=== PATIENT | female | born 1990 | race Caucasian/White ===

== ENCOUNTER 2017-06-23 15:49 | Emergency (ER) | payer OTHER ==
--- NOTE | 2017-06-23 16:47 | PDOC ---
Rapid Medical Evaluation Time Seen by Provider: 06/23/17 16:45 Medical Evaluation: Allergies Allergy/AdvReac Type Severity Reaction Status Date / Time No Known Allergies Allergy Verified 08/27/14 13:33 06/23/17 16:45 I have performed a brief in-person evaluation of this patient. The patient presents with a chief complaint of: lower abd cramping this am, no vag bleed or dysuria Pertinent physical exam findings:tenderness to mid suprapubic I have ordered the following:beta, T&S, ua, US The patient will proceed to the ED for further evaluation.
[2017-06-23 16:49] VITALS: BMI 24.7
--- NOTE | 2017-06-23 17:14 | PDOC ---
Attending Attestation - Resident Resident Name: Adrian Peter - ED Attending Attestation I have performed the following: I have examined & evaluated the patient, The case was reviewed & discussed with the resident, I agree w/resident's findings & plan, Exceptions are as noted
[2017-06-23 17:27] LABS: URINE APPEARANCE CLEAR; URINE BILIRUBIN NEGATIVE (NEGATIVE); URINE BLOOD NEGATIVE (NEGATIVE); URINE COLOR LTYELLOW; URINE GLUCOSE (UA) NEGATIVE (NEGATIVE); URINE KETONE NEGATIVE (NEGATIVE); URINE LEUK ESTERASE NEGATIVE (NEGATIVE); URINE NITRITE NEGATIVE (NEGATIVE); URINE PROTEIN NEGATIVE (NEGATIVE); URINE UROBILINOGEN NEGATIVE mg/dL (0.2-1.0)
--- NOTE | 2017-06-23 18:24 | PDOC ---
History of Present Illness - General History Source: Patient Exam Limitations: No Limitations - History of Present Illness Initial Comments: 06/23/17 18:25 The patient is a 27 year old female, , 12 weeks , who presents to the ED with complaints of lower abdominal cramping for the past 1.5 days. The patient denies having any pain throughout her . Additionally the patient complains of mild nausea which shes been endorsing since she was .She denies any associated vaginal bleeding. She additionally denies any dysuria, hematuria, urgency or frequency. She denies any fevers or chills and reports recent travel to [place] and returned one week ago. The patient denies being seen by an SHOVEL LOADER OPERATOR yet for her . She denies history of UTI but reports history of yeast infections. <Lena Ness - Last Filed: 06/23/17 18:25> <Adrien Winter - Last Filed: 06/24/17 01:15> - General Chief Complaint: Pain Stated Complaint: ABD CRAMPING (12 WKS ) Time Seen by Provider: 06/23/17 16:45 Past History <Lena Ness - Last Filed: 06/23/17 18:25> - Past Medical History Asthma: No Cancer: No Cardiac Disorders: No COPD: No Diabetes: No HTN: No Seizures: No Thyroid Disease: No - Reproductive History Is Patient Now?: Yes (#): 2 Para: 1 Spontaneous : 0 - Suicide/Smoking/Psychosocial Hx Smoking History: Never smoked Have you smoked in the past 12 months: No Information on smoking cessation initiated: No Hx Alcohol Use: No Drug/Substance Use Hx: No Substance Use Type: None Hx Substance Use Treatment: No <Adrien Winter - Last Filed: 06/24/17 01:15> - Past Medical History Allergies/Adverse Reactions: Allergies Allergy/AdvReac Type Severity Reaction Status Date / Time No Known Allergies Allergy Verified 06/23/17 16:49 Home Medications: Ambulatory Orders NK [No Known Home Medication] 07/03/14 Review of Systems - Review of Systems Able to Perform ROS?: Yes <Lena Ness - Last Filed: 06/23/17 18:25> *Physical Exam - Vital Signs Last Vital Signs Temp Pulse Resp BP Pulse Ox 97.8 F 88 17 124/64 100 06/23/17 16:46 06/23/17 16:46 06/23/17 16:46 06/23/17 16:46 06/23/17 16:46 <Lena Ness - Last Filed: 06/23/17 18:25> - Vital Signs Last Vital Signs Temp Pulse Resp BP Pulse Ox 97.8 F 88 17 124/64 100 06/23/17 16:46 06/23/17 16:46 06/23/17 16:46 06/23/17 16:46 06/23/17 16:46 <Adrien Winter - Last Filed: 06/24/17 01:15> ED Treatment Course - ADDITIONAL ORDERS Additional order review: Laboratory Results 06/23/17 06/23/17 17:00 17:00 Urine Color Ltyellow Urine Appearance Clear Urine pH 8.0 D Ur Specific [place] 1.024 Urine Protein Negative Urine Glucose (UA) Negative Urine Ketones Negative Urine Blood Negative Urine Nitrite Negative Urine Bilirubin Negative Urine Urobilinogen Negative Ur Leukocyte Esterase Negative Urine HCG, Qual Positive <Lena Ness - Last Filed: 06/23/17 18:25> - ADDITIONAL ORDERS Additional order review: Laboratory Results 06/23/17 06/23/17 17:00 17:00 Urine Color Ltyellow Urine Appearance Clear Urine pH 8.0 D Ur Specific [place] 1.024 Urine Protein Negative Urine Glucose (UA) Negative Urine Ketones Negative Urine Blood Negative Urine Nitrite Negative Urine Bilirubin Negative Urine Urobilinogen Negative Ur Leukocyte Esterase Negative Urine HCG, Qual Positive <Adrien Winter - Last Filed: 06/24/17 01:15> Medical Decision Making - Medical Decision Making 06/24/17 01:15 Well-appearing no apparent distress urinalysis clean history and examination at this time most consistent with vulvo-vaginal candidiasis Patient will follow-up with her SHOVEL LOADER OPERATOR on Monday. We'll treat with over-the- counter Monistat Findings, the need for follow-up, strict return instructions discussed with patient. <Adrien Winter - Last Filed: 06/24/17 01:15> *DC/Admit/Observation/Transfer <Lena Ness - Last Filed: 06/23/17 18:25> - Discharge Dispostion Admit: No <Adrien Winter - Last Filed: 06/24/17 01:15> Diagnosis at time of Disposition: Dysuria - Referrals Referrals: Socorro Julien MD [Staff Physician] - - Patient Instructions Printed Discharge Instructions: DI for Vaginal Yeast Infection Additional Instructions: Follow-up with Dr. Julien SHOVEL LOADER OPERATOR this week. Return to the emergency department for any severe bleeding severe abdominal pain fever or for any concerns. Take [id number] Monistat cream for yeast infection If urine culture grows any bacteria you'll receive a phone call and an antibiotic will be called in for you - Post Discharge Activity Forms/Work/School Notes: Back to Work
[2017-06-23 18:40] VITALS: BP 123/77; PULSE 72; TEMP 98.2
== END 2017-06-23 18:40 | disposition home or self-care (01) ==
LOC: JER 15:49
DX: O26.891 Other specified pregnancy related conditions, first trimester (principal); O98.811 Other maternal infectious and parasitic diseases complicating pregnancy, first trimester; B37.3 Candidiasis of vulva and vagina; Z3A.12 12 weeks gestation of pregnancy
CPT/HCPCS: 36415; 76801-TC; 81003; 84702; 84703; 86850; 86900; 86901; 87086; 99282-25

== ENCOUNTER 2017-12-21 14:30 | Inpatient (IN) | payer OTHER ==
[2017-12-21] MEDS: DEXTROSE 5%-LACTATED RINGERS 1,000 ML IV SCH (14:30)
[2017-12-21 15:34] VITALS: BMI 29.5
[2017-12-21] MEDS ORDERED: OXYTOCIN 20 UNITS in 0.9% NS 20 UNIT/1,000 ML INFUS.BAG IV ONE (16:15)
[2017-12-21] MEDS: OXYTOCIN 20 UNITS in 0.9% NS 20 UNIT/1,000 ML INFUS.BAG IV SCH (16:25)
[2017-12-21] MEDS ORDERED: METHYLERGONOVINE MALEATE 0.2 MG/1 ML AMP IM PRN (16:32)
[2017-12-21] MEDS ORDERED: WITCH HAZEL 50% (TUCKS) 40 PAD/JAR PAD TP PRN (16:32)
[2017-12-21] MEDS ORDERED: BISACODYL 10 MG SUPP.RECT RC PRN (16:32)
[2017-12-21 16:41] LABS: BASO % 0.4 % (0-2.0); EOS % 0.3 % (0-4.5); HEMATOCRIT 38.1 % (32.4-45.2); HEMOGLOBIN 12.9 GM/dL (10.7-15.3); LYMPH % 20.9 % (8-40); MCH 29.4 pg (25.7-33.7); MCHC 33.8 g/dl (32.0-36.0); MEAN CELL VOLUME 87.1 fl (80-96); MEAN PLT VOLUME 9.6 fl (7.5-11.1); MONO % 5.4 % (3.8-10.2); PLATELET COUNT 234 K/MM3 (134-434); RBC 4.38 M/mm3 (3.60-5.2); RDW 14.2 % (11.6-15.6); WHITE BLOOD COUNT 11.1 K/mm3 (4.0-10.0)
[2017-12-21] MEDS: ELECTROLYTE-148 SOLN 1,000 ML IV SCH (16:45)
[2017-12-21] MEDS ORDERED: IBUPROFEN 600 MG TABLET (FP) PO ONE (16:52)
[2017-12-21] MEDS ORDERED: ACETAMINOPHEN 325 MG TABLET (FP) ONE (16:52)
[2017-12-21] MEDS: ACETAMINOPHEN 325 MG TABLET (FP) PO PRN (16:55)
[2017-12-21] MEDS: IBUPROFEN 600 MG TABLET (FP) PO PRN (16:55)
[2017-12-21 17:01] LABS: INR 0.84 (0.82-1.09); PROTHROMBIN TIME (PATIENT) 9.5 SEC (9.7-13.0)
[2017-12-21 17:03] LABS: ACTIVATED PTT 24.1 SECONDS (25.2-36.5)
[2017-12-21 17:04] LABS: ANION GAP 12 (8-16); BLOOD UREA NITROGEN 12 mg/dL (7-18); CALCIUM 8.9 mg/dL (8.5-10.1); CHLORIDE 106 mmol/L (98-107); CO2 20 mmol/L (21-32); CREATININE 0.6 mg/dL (0.55-1.02); GLUCOSE,RANDOM 87 mg/dL (74-106); POTASSIUM 3.6 mmol/L (3.5-5.1); SODIUM 138 mmol/L (136-145)
[2017-12-21] MEDS: FERROUS SO4 325 MG TABLET (FP) PO SCH (18:21)
[2017-12-21 20:04] LABS: PLATELET ESTIMATE ADEQUATE
--- NOTE | 2017-12-21 20:31 | HP ---
Past Medical History - Primary Care Physician PCP:: Horace Fitzgerald - Admission Chief Complaint: 38 weeks, labor History of Present Illness: 27 yo f 38 weeks in labor , no rom, cx 8 cm 100 vx -1 mi, fhr cat 1, regular contraction History Source: Patient Limitations to Obtaining History: No Limitations - Past Medical History ...: 2 ...Para: 1 ...Term: 1 ...: 0 ...Spon : 0 ...Induced : 0 ...Multiple Gestation: 0 ...LMP: 03/24/17 ... Weeks Gestation by Dates: 38.6 ...EDC by Dates: 12/29/17 ...EDC by Sono: 01/01/18 - Past Surgical History Hx Myomectomy: No Hx Transabdominal Cerclage: No - Smoking History Smoking history: Never smoked Have you smoked in the past 12 months: No - Alcohol/Substance Use Hx Alcohol Use: No - Social History Usual Living Arrangement: Yes: With Spouse History of Recent Travel: No Home Medications - Allergies Allergies/Adverse Reactions: Allergies Allergy/AdvReac Type Severity Reaction Status Date / Time No Known Allergies Allergy Verified 12/21/17 17:37 - Home Medications Home Medications: Ambulatory Orders Iron 1 tab PO DAILY 12/21/17 Vit 108/Iron/Folic AC [ One Tablet] 1 tab PO DAILY 12/21/17 Review of Systems - Review of Systems Constitutional: reports: No Symptoms Eyes: reports: No Symptoms HENT: reports: No Symptoms Neck: reports: No Symptoms Cardiovascular: reports: No Symptoms Respiratory: reports: No Symptoms Gastrointestinal: reports: No Symptoms Genitourinary: reports: No Symptoms Breasts: reports: No Symptoms Reported Musculoskeletal: reports: No Symptoms Integumentary: reports: No Symptoms Neurological: reports: No Symptoms Endocrine: reports: No Symptoms Hematology/Lymphatic: reports: No Symptoms Psychiatric: reports: No Symptoms Physical Exam - Maternity Vital Signs: Vital Signs Temperature 98.2 F 12/21/17 18:10 Pulse Rate 68 12/21/17 19:30 Respiratory Rate 20 12/21/17 19:30 Blood Pressure 111/50 12/21/17 19:30 O2 Sat by Pulse Oximetry (%) 100 12/21/17 17:30 - Abdominal Exam/OB Number of Fetuses: Single Presentation: Vertex Contractions: Yes Regularity: Regular Intensity: Mod/Strong Monitor Mode: External Heart Rate Location: [facility] Category: I Accelerations: Uniform Decelerations: None - Vaginal Exam/OB Vaginal Bleediing: Bloody Show Speculum Exam: No Dilatation (cm): 8 cm Effacement (%): 100 Amniotic Membrane Status: Bulging Presentation: Vertex/Position Station: -1 - Physical Exam Musculoskeletal: Yes: WNL Extremities: Yes: WNL Edema: Yes Edema: LLE: Trace, RLE: Trace Deep Tendon Reflex Grade: Normal +2 ...Motor Strength: WNL Psychiatric: Yes: WNL - Labs Lab Results: CBC, BMP 12/21/17 16:00 12/21/17 16:00 Hemorrhage Risk Assessment - Risk Factors Medium Risk Factors: Yes: None High Risk Factors: Yes: None Risk Score: 1 Risk Level: Medium Risk Problem List - Problems (1) with 38 completed weeks gestation Code(s): Z3A.38 - 38 WEEKS GESTATION OF (2) Labor established Code(s): EOM5851 - Assessment/Plan admit for vaginal delivery, FHM
--- NOTE | 2017-12-22 06:53 | PN ---
Progress Note (short form) - Note Progress Note: ppd 1 doing well, no c/o voids ok CBC, BMP 12/21/17 16:00 12/21/17 16:00 Last Vital Signs Temp Pulse Resp BP Pulse Ox 98.0 F 72 20 114/67 100 12/22/17 02:50 12/22/17 02:50 12/22/17 02:50 12/22/17 02:50 12/21/17 17:30 abdomen soft, uterus firm, non tender lochia mild no calf tenderness plan ambulate , cbc Problem List - Problems (1) with 38 completed weeks gestation Code(s): Z3A.38 - 38 WEEKS GESTATION OF (2) Labor established Code(s): QQX0167 -
[2017-12-22 07:59] LABS: BASO % 0.5 % (0-2.0); EOS % 1.1 % (0-4.5); HEMATOCRIT 30.7 % (32.4-45.2); HEMOGLOBIN 10.4 GM/dL (10.7-15.3); LYMPH % 19.4 % (8-40); MCH 29.7 pg (25.7-33.7); MCHC 33.8 g/dl (32.0-36.0); MEAN PLT VOLUME 9.7 fl (7.5-11.1); MONO % 6.3 % (3.8-10.2); NEUT % 72.7 % (42.8-82.8); PLATELET COUNT 189 K/MM3 (134-434); RBC 3.49 M/mm3 (3.60-5.2); RDW 14.3 % (11.6-15.6); WHITE BLOOD COUNT 13.6 K/mm3 (4.0-10.0)
[2017-12-22] MEDS: BENZOCAINE 28 GM HEMORRHOIDAL OINTMENT TP PRN (09:03)
[2017-12-22] MEDS: FERROUS SO4 325 MG TABLET (FP) PO SCH ×2 (09:04→17:52)
[2017-12-22] MEDS: PRENATAL VITAMINS W/ FOLIC ACID TABLET (FP) PO SCH (09:04)
[2017-12-22] MEDS: BENZOCAINE 20% 57 GM BOTTLE TP PRN (09:04)
[2017-12-22] MEDS: ACETAMINOPHEN 325 MG TABLET (FP) PO PRN ×2 (09:04→21:15)
[2017-12-22] MEDS: IBUPROFEN 600 MG TABLET (FP) PO PRN ×2 (09:05→21:15)
[2017-12-22 11:08] LABS: ANISOCYTOSIS 1+; MACROCYTOSIS 0; PLATELET ESTIMATE NORMAL
[2017-12-22] MEDS: ELECTROLYTE-148 SOLN 1,000 ML IV SCH (20:07)
[2017-12-22] MEDS: OXYTOCIN 20 UNITS in 0.9% NS 20 UNIT/1,000 ML INFUS.BAG IV SCH (20:07)
[2017-12-22] MEDS: DEXTROSE 5%-LACTATED RINGERS 1,000 ML IV SCH (20:07)
[2017-12-22] MEDS ORDERED: SENNOSIDES/DOCUSATE COMBO (SENNA PLUS) TABLET (UD) PO PRN (22:00)
[2017-12-23] VITALS: BP 117/62; PULSE 77
[2017-12-23] MEDS: FERROUS SO4 325 MG TABLET (FP) PO SCH (07:57)
[2017-12-23 08:14] VITALS: TEMP 97.9
[2017-12-23] MEDS: PRENATAL VITAMINS W/ FOLIC ACID TABLET (FP) PO SCH (10:04)
[2017-12-23] MEDS: BENZOCAINE 20% 57 GM BOTTLE TP PRN (10:05)
[2017-12-23] MEDS: BENZOCAINE 28 GM HEMORRHOIDAL OINTMENT TP PRN (10:05)
--- NOTE | 2017-12-23 11:29 | PN ---
Post Progress Note - Subjective Subjective: Pt PPD#2. Feels well, denies complaints. Voiding and ambulating. Trying to breast feed Post Day: 2 Type of Delivery: Vital Signs: Vital Signs Temperature 97.9 F 12/23/17 07:30 Pulse Rate 77 12/23/17 07:30 Respiratory Rate 18 12/23/17 07:30 Blood Pressure 117/62 12/23/17 07:30 O2 Sat by Pulse Oximetry (%) 100 12/21/17 17:30 Breast Exam: Yes: Soft Uterus: Yes: Fundus Firm Abdomen/GI: Yes: Abdomen soft Lochia, amount: Small Extremities: Yes: Calves non-tender Activity: Ambulating - Labs Labs: CBC WBC 13.6 K/mm3 (4.0-10.0) H 12/22/17 06:50 RBC 3.49 M/mm3 (3.60-5.2) L 12/22/17 06:50 Hgb 10.4 GM/dL (10.7-15.3) L 12/22/17 06:50 Hct 30.7 % (32.4-45.2) L D 12/22/17 06:50 MCV 88.0 fl (80-96) 12/22/17 06:50 MCH 29.7 pg (25.7-33.7) 12/22/17 06:50 MCHC 33.8 g/dl (32.0-36.0) 12/22/17 06:50 RDW 14.3 % (11.6-15.6) 12/22/17 06:50 Plt Count 189 K/MM3 (134-434) 12/22/17 06:50 MPV 9.7 fl (7.5-11.1) 12/22/17 06:50 Absolute Neuts (auto) 9.9 # 12/22/17 06:50 Neutrophils % 72.7 % (42.8-82.8) 12/22/17 06:50 Neutrophils % (Manual) 73.0 % (42.8-82.8) 12/22/17 06:50 Band Neutrophils % 1.0 % 12/22/17 06:50 Lymphocytes % 19.4 % (8-40) 12/22/17 06:50 Lymphocytes % (Manual) 18.0 % (8-40) 12/22/17 06:50 Monocytes % 6.3 % (3.8-10.2) 12/22/17 06:50 Monocytes % (Manual) 5 % (3.8-10.2) 12/22/17 06:50 Eosinophils % 1.1 % (0-4.5) D 12/22/17 06:50 Eosinophils % (Manual) 1.0 % (0-4.5) 12/22/17 06:50 Basophils % 0.5 % (0-2.0) 12/22/17 06:50 Basophils % (Manual) 0.0 % (0-2.0) 12/22/17 06:50 Myelocytes % (Man) 1 % (0-2) 12/22/17 06:50 Promyelocytes % (Man) 0 % (0-2) 12/22/17 06:50 Blast Cells % (Manual) 0 % (0-0) 12/22/17 06:50 Nucleated RBC % 0 % (0-0) 12/22/17 06:50 Metamyelocytes 0 % (0-2) 12/22/17 06:50 Hypochromia 0 12/22/17 06:50 Platelet Estimate Normal 12/22/17 06:50 Platelet Comment No clumping noted 12/21/17 16:00 Polychromasia 0 12/22/17 06:50 Poikilocytosis 1+ 12/22/17 06:50 Anisocytosis 1+ 12/22/17 06:50 Microcytosis 1+ 12/22/17 06:50 Macrocytosis 0 12/22/17 06:50 [place] Cells 1+ 12/22/17 06:50 Problem List - Problems (1) Vaginal delivery Assessment/Plan: Pt PPD#2 s/p doing well stable for discharge home vitamins while breast feeding pelvic rest x 6 weeks f/u pp visit 4-[address] [place] Code(s): O80 - ENCOUNTER FOR FULL-TERM UNCOMPLICATED DELIVERY
== END 2017-12-23 12:30 | disposition home or self-care (01) | DRG 560 ==
LOC: JLDR 14:30 → J3W 18:10
PROVIDERS: ADMIT Obstetrics & Gynecology; ATTEND Obstetrics & Gynecology
PROC: 10E0XZZ Delivery of Products of Conception, External Approach (ICD-10-PCS; principal; 2017-12-21)
DX: O80 Encounter for full-term uncomplicated delivery (principal); Z3A.38 38 weeks gestation of pregnancy; Z37.0 Single live birth
CPT/HCPCS: 36415; 59409; 80048; 85025; 85610; 85730; 86593; 86850; 86900; 86901

== ENCOUNTER 2022-09-14 11:33 | Inpatient (IN) | payer OTHER ==
[2022-09-14 12:48] VITALS: BMI 31.7
[2022-09-14 13:19] LABS: HEMATOCRIT 36.4 % (32.4-45.2); HEMOGLOBIN 12.6 GM/dL (10.7-15.3); INR 0.9 (0.83-1.09); MCH 29.3 pg (25.7-33.7); MCHC 34.5 g/dl (32.0-36.0); MEAN PLT VOLUME 9.9 fl (7.5-11.1); PLATELET COUNT 233 10^3/uL (134-434); PROTHROMBIN TIME (PATIENT) 10.5 SEC (9.7-13.0); RBC 4.29 M/mm3 (3.60-5.2); RDW 13.8 % (11.6-15.6)
[2022-09-14] MEDS ORDERED: OXYTOCIN 20 UNITS in 0.9% NS 20 UNIT/1,000 ML INFUS.BAG IV ONE ×2 (13:20→15:48)
[2022-09-14 13:22] LABS: ACTIVATED PTT 23.3 SECONDS (25.2-36.5)
[2022-09-14] MEDS ORDERED: DEXTROSE 5%-LACTATED RINGERS 1,000 ML IV SCH (13:30)
[2022-09-14 13:41] LABS: POTASSIUM 4.4 mmol/L (3.5-5.1)
[2022-09-14 13:43] LABS: CALCIUM 9.3 mg/dL (8.5-10.1)
[2022-09-14 13:44] LABS: BLOOD UREA NITROGEN 5.6 mg/dL (7-18)
[2022-09-14 13:47] LABS: CREATININE 0.6 mg/dL (0.55-1.3)
[2022-09-14 14:22] LABS: ANISOCYTOSIS 0; MACROCYTOSIS 0
[2022-09-14 14:33] LABS: HIV INTERPRETATION NEGATIVE (NEGATIVE)
[2022-09-14 15:11] LABS: CORD BASE EXCESS -5.8 mmol/L (0-2); CORD HCO3 20.8 mmHg (20-29); CORD PCO2 44.7 mmHg (30-78); CORD pH 7.286 (7.14-7.44)
[2022-09-14 15:14] LABS: CORD BASE EXCESS -1.1 mmol/L (0-2); CORD HCO3 24.5 mmHg (20-29); CORD PCO2 43.9 mmHg (30-78); CORD pH 7.365 (7.14-7.44)
[2022-09-14] MEDS ORDERED: OXYTOCIN 20 UNITS in 0.9% NS 20 UNIT/1,000 ML INFUS.BAG IV SCH (15:15)
[2022-09-14] MEDS ORDERED: BENZOCAINE 28 GM HEMORRHOIDAL OINTMENT TP PRN (15:15)
[2022-09-14] MEDS ORDERED: ACETAMINOPHEN 325 MG TABLET (FP) PO PRN (15:15)
[2022-09-14] MEDS ORDERED: BISACODYL 10 MG SUPP.RECT RC PRN (15:15)
[2022-09-14] MEDS ORDERED: BENZOCAINE 20% 57 GM BOTTLE TP PRN (15:15)
[2022-09-14] MEDS ORDERED: METHYLERGONOVINE MALEATE 0.2 MG/1 ML AMP IM PRN (15:15)
[2022-09-14] MEDS ORDERED: WITCH HAZEL 50% (TUCKS) 40 PAD/JAR PAD TP PRN (15:15)
[2022-09-14] MEDS ORDERED: oxyCODONE HCL 5 MG TABLET PO PRN (15:15)
[2022-09-14] MEDS ORDERED: METHYLERGONOVINE MALEATE 0.2 MG/1 ML AMP IM ONE (15:16)
[2022-09-14] MEDS: IBUPROFEN 600 MG TABLET (FP) PO PRN (16:16)
[2022-09-15] MEDS: IBUPROFEN 600 MG TABLET (FP) PO PRN ×3 (00:09→17:07)
[2022-09-15 03:30] VITALS: RESP 18
[2022-09-15 07:54] LABS: HEMATOCRIT 34.5 % (32.4-45.2); HEMOGLOBIN 11.8 GM/dL (10.7-15.3); MCHC 34.3 g/dl (32.0-36.0); MEAN CELL VOLUME 84.6 fl (80-96); MEAN PLT VOLUME 9.3 fl (7.5-11.1); PLATELET COUNT 212 10^3/uL (134-434); RBC 4.07 M/mm3 (3.60-5.2); RDW 13.9 % (11.6-15.6)
[2022-09-15 08:56] LABS: ANISOCYTOSIS 0; HELMET CELLS 0; HOWELL-JOLLY BODIES 0; MACROCYTOSIS 0; OVALOCYTE 0; ROULEAU 0; SICKELED CELLS 0; TARGET CELLS 0; TEAR DROP CELLS 0; TOXIC GRANULATION 0
[2022-09-15] MEDS ORDERED: SENNOSIDES/DOCUSATE COMBO (SENNA PLUS) TABLET (UD) PO PRN (22:00)
[2022-09-16 08:27] VITALS: BP 102/69; PULSE 79; TEMP 97.9
[2022-09-16] MEDS: IBUPROFEN 600 MG TABLET (FP) PO PRN (09:22)
== END 2022-09-16 11:10 | disposition home or self-care (01) | DRG 560 ==
LOC: JLDR 11:33 → J3W 16:00
PROVIDERS: ADMIT Obstetrics & Gynecology; ATTEND Obstetrics & Gynecology
PROC: 10E0XZZ Delivery of Products of Conception, External Approach (ICD-10-PCS; principal; 2022-09-14)
DX: O69.81X0 Labor and delivery complicated by cord around neck, without compression, not applicable or unspecified (principal); Z3A.38 38 weeks gestation of pregnancy; Z37.0 Single live birth
CPT/HCPCS: 36415; 36600; 80048; 82803; 85025; 85610; 85730; 86780; 86850; 86900; 86901; 87389; C9803-CS; U0003; U0005

== ENCOUNTER 2024-09-26 11:30 | Inpatient (IN) | payer OTHER ==
[2024-09-26 12:49] VITALS: BMI 33.2
[2024-09-26 13:00] LABS: ABSOLUTE IMMATURE GRANULOCYTES 0.09 x10^3/uL (0.0-0.031); BASOPHILS # 0.04 x10^3/uL (0.01-0.08); EOSINOPHIL % 0.7 % (0.7-5.8); EOSINOPHILS # 0.06 x10^3/uL (0.04-0.36); HEMOGLOBIN 12.1 g/dL (11.2-15.7); MCHC 32.7 g/dl (32.2-35.5); MEAN CELL VOLUME 86.7 fl (79.4-94.8); MEAN PLT VOLUME 11.3 fl (9.4-12.3); MONOCYTE # 0.45 x10^3/uL (0.24-0.86); MONOCYTE % 5.2 % (4.7-12.5); PLATELET COUNT 207 x10^3/uL (182-369); RDW 14.2 % (12.1-16.8)
[2024-09-26] MEDS: ELECTROLYTE-148 SOLN 1,000 ML IV SCH (13:02)
[2024-09-26 13:06] LABS: INR 0.86 (0.83-1.09); PROTHROMBIN TIME (PATIENT) 9.5 SEC (9.7-13.0)
[2024-09-26 13:09] LABS: ACTIVATED PTT 24.6 SECONDS (25.2-36.5)
[2024-09-26 13:24] LABS: POTASSIUM 3.9 mmol/L (3.5-5.1)
[2024-09-26 13:27] LABS: BLOOD UREA NITROGEN 10.6 mg/dL (7-18); CALCIUM 9.2 mg/dL (8.5-10.1)
[2024-09-26 13:30] LABS: CREATININE 0.6 mg/dL (0.55-1.3)
[2024-09-26] MEDS ORDERED: OXYTOCIN 30 UNITS in 0.9% NS 30 UNIT/500 ML INFUS.BAG IVPB ONE (13:48)
[2024-09-26] MEDS: OXYTOCIN 30 UNITS in 0.9% NS 30 UNIT/500 ML INFUS.BAG IVPB SCH (14:15)
[2024-09-26] MEDS ORDERED: LIDOCAINE HCL 1% PRESERVATIVE FREE - 30ML VIAL ONE (19:28)
[2024-09-26] MEDS ORDERED: OXYTOCIN 20 UNITS in 0.9% NS 20 UNIT/1,000 ML INFUS.BAG IV ONE (19:28)
[2024-09-26] MEDS ORDERED: BUTORPHANOL TARTRATE 1 MG/ML VIAL IVPUSH ONE (19:30)
[2024-09-26] MEDS: OXYTOCIN 20 UNITS in 0.9% NS 20 UNIT/1,000 ML INFUS.BAG IV SCH (19:37)
[2024-09-26] MEDS ORDERED: oxyCODONE HCL 5 MG TABLET PO PRN (20:21)
[2024-09-26] MEDS ORDERED: BISACODYL 10 MG SUPP.RECT RC PRN (20:21)
[2024-09-26] MEDS ORDERED: BENZOCAINE 20% 57 GM BOTTLE TP PRN (20:21)
[2024-09-26] MEDS ORDERED: IBUPROFEN 600 MG TABLET (FP) PO ONE (20:49)
[2024-09-26 20:50] LABS: CORD HCO3 19.5 mmHg (20-29); CORD PCO2 29.2 mmHg (30-78); CORD pH 7.443 (7.14-7.44)
[2024-09-26] MEDS: IBUPROFEN 600 MG TABLET (FP) PO PRN (20:50)
[2024-09-26] MEDS: METHYLERGONOVINE MALEATE 0.2 MG/1 ML AMP IM PRN (21:00)
[2024-09-26] MEDS: ACETAMINOPHEN 325 MG TABLET (FP) PO PRN (23:24)
[2024-09-27 07:20] LABS: BASOPHILS # 0.07 x10^3/uL (0.01-0.08); EOSINOPHIL % 1.4 % (0.7-5.8); EOSINOPHILS # 0.16 x10^3/uL (0.04-0.36); HEMATOCRIT 34.9 % (34.1-44.9); HEMOGLOBIN 11.5 g/dL (11.2-15.7); MEAN CELL VOLUME 87.5 fl (79.4-94.8); MEAN PLT VOLUME 11.5 fl (9.4-12.3); MONOCYTE # 0.66 x10^3/uL (0.24-0.86); PLATELET COUNT 202 x10^3/uL (182-369); RDW 14.3 % (12.1-16.8)
[2024-09-27] MEDS: BENZOCAINE 28 GM HEMORRHOIDAL OINTMENT TP PRN (14:57)
[2024-09-27] MEDS: WITCH HAZEL 50% (TUCKS) 40 PAD/JAR PAD TP PRN (14:57)
[2024-09-27] MEDS ORDERED: SENNOSIDES/DOCUSATE COMBO (SENNA PLUS) TABLET (UD) PO PRN (22:00)
[2024-09-28] MEDS: PROMETHAZINE HCL 25 MG/1 ML VIAL IVPB ONE (06:58)
[2024-09-28] MEDS: BUTORPHANOL TARTRATE 2 MG/ML VIAL IVPUSH ONE (07:00)
[2024-09-28 09:14] VITALS: BP 113/79; PULSE 79; RESP 17; TEMP 97.9
== END 2024-09-28 12:25 | disposition home or self-care (01) | DRG 560 ==
LOC: JLDR 11:30 → J3W 22:15
PROVIDERS: ADMIT Obstetrics & Gynecology; ATTEND Obstetrics & Gynecology
PROC: 10E0XZZ Delivery of Products of Conception, External Approach (ICD-10-PCS; principal; 2024-09-26)
DX: O80 Encounter for full-term uncomplicated delivery (principal); Z3A.38 38 weeks gestation of pregnancy; Z37.0 Single live birth
CPT/HCPCS: 36415; 36600; 59409; 80048; 82803; 85025; 85610; 85730; 86780; 86850; 86900; 86901